=== PATIENT | female | born 1960 | race Caucasian/White ===

== ENCOUNTER 2017-02-26 18:30 | Inpatient (IN) | payer OTHER ==
--- NOTE | ~2017-02-26 | DS ---
Unit #: [id number] #: [id number] Patient: MARK SEBASTIAN [id number] [facility] [address] [place] [address] [id number] MR#: [id number] NAME: MARK SEBASTIAN. ROOM: [facility] Age: 56 Sex: F Admission Date: 02/26/2017 : 1960 Discharge Date: 02/28/2017 Attending Physician: Fortunato Chapman M.D. Primary Care Physician: Primary Care Physician No DISCHARGE SUMMARY REASON FOR ADMISSION Ms. Sebastian is a 56-year-old woman who was admitted to our hospital after she was seen in the emergency room following an accidental overdose of her prescribed medication. She appeared to be in a disorganized state, and it was questionable suicidal ideation at that time. She was admitted for stabilization. DIAGNOSTIC STUDIES LABORATORY RESULTS: Please see hospital chart. HOSPITAL COURSE The patient was admitted and placed on suicide precautions overnight. The patient had minimal symptoms after admission, with rapid clearing of her mental status, a pleasant and affable mood, and absolute denial of suicidal ideation, intent, or plan. She was able to fully contract for safety and reports that she had been mistake about how much medication she had taken after a long day of travel. She was once again able to contract for safety and was discharged in good condition. DISCHARGE DIAGNOSES AXIS I: Medication-induced delirium. AXIS II: No diagnosis. AXIS III: History of chronic pain, history of multiple sclerosis. AXIS IV: AXIS V: DISCHARGE INSTRUCTIONS Follow up with primary care physician. DISCHARGE MEDICATIONS Unchanged from admission. The patient was continued on Ambien 5 mg at bedtime for insomnia, baclofen 20 mg daily for muscle relaxation, Cymbalta 60 mg daily for pain, Neurontin 400 mg daily for pain, Mobic 15 mg daily for pain, trazodone 150 mg at bedtime for insomnia, triamcinolone p.r.n. for eczema, Nucynta 75 mg daily for MS. CONDITION AT DISCHARGE Improved. PROGNOSIS Fair to good. Unit #: [id number] #: [id number] Patient: MARK SEBASTIAN DIET AND ACTIVITY Per primary care doctor. Dictated by... Fortunato Chapman M.D. [facility]/sushant TD: 04/21/2017 21:47 JOB #: [id number] DISCHARGE SUMMARY Page 1 of 1 X Fotrunato Chapman MD DISCHARGE SUMMARY
--- NOTE | ~2017-02-26 | CO ---
Unit #: [id number] #: [id number] Patient: VERENICE DUNN [id number] [place] [address] [id number] MR#: [id number] NAME: VERENICE DUNN ROOM: [facility] Age: 56 Sex: F Admission Date: 02/26/2017 : 1960 Attending Physician: Fortunato Chapman M.D. Primary Care Physician: Primary Care Physician No Consultation Date: 02/28/2017 CONSULTATION REPORT SUBJECTIVE Verenice is a 56-year-old who was admitted with multiple bruises and skin tears. These areas were examined and described and treatment was outlined under her admission H and P. Please see H and P dated 02/27/2017. Dictated by... Elaine Mccollum P.A.-C. for Gama Velazco/sushant TD: 03/01/2017 02:07 JOB #: [id number] CONSULTATION REPORT Page 1 of 1 X Elaine Mccollum CONSULTATION REPORT
--- NOTE | ~2017-02-26 | HP ---
Unit #: [id number] #: [id number] Patient: VERENICE DUNN [id number] [place] [address] [id number] I MR#: [id number] NAME: VERENICE DUNN. ROOM: [facility]6 Age: 56 Sex: F Admission Date: 02/26/2017 : 1960 Attending Physician: Fortunato Chapman M.D. Admitting Physician: Fortunato Chapman M.D. Primary Care Physician: Primary Care Physician No HISTORY AND PHYSICAL HISTORY OF PRESENT ILLNESS Vereniec is a 56 year old, admitted to [address] [place] [address] after an accidental overdose of her prescribed medications. She gives no history of depression or suicidal ideation. At the time of admission, she was evidently quite psychotic. At the time of this meeting she is a very pleasant level-headed lady. PAST MEDICAL HISTORY 1. MS. She fatigues easily. 2. Obesity. a. Gastric bypass, 1984 PAST SURGICAL HISTORY 1. As above. 2. Cholecystectomy. 3. Appendectomy. 4. Hysterectomy. 5. Low back x1. 6. Cervical disc x2. 7. Bilateral mastectomy with reconstructions. ALLERGIES Codeine. SOCIAL HISTORY She denies cigarettes, alcohol, or illicit drug use. FAMILY HISTORY Medically noncontributory. REVIEW OF SYSTEMS CONSTITUTIONAL: No fever or chills. HEENT: Denies any sore throat, ear pain or runny nose. CARDIOVASCULAR: Denies chest pain, irregular heart rhythm or palpitations. CHEST: Denies shortness of breath or cough. No hemoptysis. GASTROINTESTINAL: Denies nausea, vomiting, diarrhea or chronic constipation. ENDOCRINE: Denies history of increased thirst or urination. No recent significant weight loss or gain. GENITOURINARY: Denies dysuria, frequency, or hematuria. SKIN: Denies any rashes. HEMATOLOGIC: Denies history of increased bleeding or bruising. MUSCULOSKELETAL: Denies any hot, swollen joints. No generalized muscle Unit #: [id number] #: [id number] Patient: VERENICE DUNN pain. NEUROLOGIC: Denies problems with vision or speech. No frequent, severe headaches. No numbness, tingling or weakness in any extremities. Denies loss of bladder or bowel control. CURRENT MEDICATIONS 1. Mobic 15 mg daily 2. Neurontin 400 mg daily 3. Cymbalta 60 mg daily 4. Lioresal 20 mg daily 5. Milk of magnesia p.r.n. 6. Maalox p.r.n. 7. Tylenol p.r.n. 8. Zyprexa 5 mg q.h.s. 9. Trazodone 150 mg q.h.s. 10. Ambien 5 mg q.h.s. 11. Nucynta 75 mg one daily 12. Amantadine (dosage unknown) PHYSICAL EXAMINATION GENERAL: Alert, thin, very pleasant, polite lady, no apparent distress. VITAL SIGNS: Blood pressure 154/96, heart rate 90, respirations 16, and temperature 98.6. SKIN: Warm and dry without rash. She has multiple bruises along both forearms with two or three skin tears. There is no increased redness, swelling, heat, or pus noted. She also has a bruise noted about the right orbit. HEENT: Normocephalic. TMs not viewed. Oral and nasal passages clear. Conjunctivae clear. PERRLA. EOMs intact. NECK: Supple without lymphadenopathy or thyromegaly. HEART: Regular rate and rhythm without murmur. LUNGS: Clear. ABDOMEN: Soft, nontender. : Not done. EXTREMITIES: No evidence of cyanosis, clubbing or edema. Moves all without focal deficit. NEUROLOGICAL: Grossly within normal limits. Cranial Nerves: II: Visual benton are intact. III, IV AND : Extraocular movements are intact. Pupils are equal, round and reactive to light. V: Facial sensation is grossly normal. VII: Facial movements and expression are normal. VIII: Auditory acuity grossly intact. IX, X: Uvula is midline. Phonation is normal. XI: Patient shrugs shoulders and turns head normally. XII: Tongue protrudes in the midline. Sensory and Motor Function: Sensory and motor sensation is grossly normal. Motor: moves all extremities well. Coordination: Gait is normal. Deep Tendon Reflexes: Intact. IMPRESSION 1. Psychiatric admission. 2. MS. 3. Multiple skin tears and bruising. RECOMMENDATIONS Psychiatric, per psychiatrist. MEDICAL 1. I see no contraindications to participating in facility's activities. Unit #: [id number] #: [id number] Patient: VERENICE DUNN 2. Keep the skin tears clean with soap and water, apply antibiotic ointment and cover with a clean dressing daily. MEDICAL PROGNOSIS Good. MEDICAL CONDITION Stable. Dictated by... Elaine Mccollum P.A.-C. for Gama Velazco/deja TD: 02/28/2017 07:49 JOB #: [id number] HISTORY AND PHYSICAL Page 1 of 1 X Elaine Mccollum X HISTORY AND PHYSICAL
[2017-02-28 09:37] LABS: BASOPHIL% 0.6 % (0-2.5); EOSINOPHIL# 0.1 X10e3 (0-0.7); EOSINOPHIL% 1.7 % (0.0-7.0); HEMOGLOBIN 13.1 gm/dL (12.0-16.0); LYMPHOCYTE# 1.3 X10e3 (1.0-3.5); LYMPHOCYTE% 20.2 % (17.0-45.0); MEAN CELL VOLUME 90.4 FL (83-96); MEAN CORPUSCULAR HEMOGLOBIN 29.7 PG (28-34); MEAN CORPUSCULAR HGB CONC 32.9 g/dL (30-36); MONOCYTE# 0.6 X10e3 (0-1.0); MONOCYTE% 10.1 % (3.0-12.0); NEUTROPHIL# 4.3 X10e3 (1.5-7.1); NEUTROPHIL% 67.4 % (40-75); PLATELET COUNT 245 X10e3 (140-420); RED BLOOD COUNT 4.42 X10e (3.90-5.30); RED CELL DISTRIBUTION WIDTH 15.2 % (11.0-15.5); WHITE BLOOD COUNT 6.4 X10e3 (4.0-10.5)
[2017-02-28 09:46] LABS: DIFF IND NO
[2017-02-28 10:21] LABS: THYROID STIMULATING HORMONE 1.6 uIU/ml (0.34-5.60)
[2017-02-28 10:28] LABS: FREE THYROXIN (T4) 1.74 ng/dL (0.58-1.64)
[2017-02-28 10:31] LABS: ALBUMIN SERUM 4.3 g/dL (3.5-5.0); BILIRUBIN,TOTAL 0.8 mg/dL (0.2-2.0); BUN/CREATININE RATIO 8.88; CALCIUM SERUM 9.6 mg/dL (8.4-10.2); CREATININE SERUM 0.9 mg/dL (0.6-1.4); GLOM FILT RATE Estimated 70.5 mL/min (>60); POTASSIUM 3.5 mmol/L (3.5-5.1); PROTEIN TOTAL SERUM 6.9 g/dL (6.0-8.3)
== END 2017-02-28 13:30 | disposition home or self-care (01) | DRG 885 ==
LOC: P1S 18:30
PROVIDERS: Psychiatry & Neurology Psychiatry
DX: F29 Unspecified psychosis not due to a substance or known physiological condition (principal); G35 Multiple sclerosis; F32.9 Major depressive disorder, single episode, unspecified; T50.901A Poisoning by unspecified drugs, medicaments and biological substances, accidental (unintentional), initial encounter; F19.10 Other psychoactive substance abuse, uncomplicated; E66.9 Obesity, unspecified; Z98.84 Bariatric surgery status; Z90.710 Acquired absence of both cervix and uterus; Z88.5 Allergy status to narcotic agent
CPT/HCPCS: 80053; 84439; 84443; 84703; 85025